=== PATIENT | female | born 1960 | race Caucasian/White ===

== ENCOUNTER → 2019-01-17 | Outpatient (CLI) | payer BC ==
--- NOTE | 2019-01-17 11:19 | RAD ---
DEXA scan 01/17/2019 Clinical History: Postmenopausal female. Risk factors for osteoporosis. Technique: DEXA of the lumbar spine and the right hip was performed. FINDINGS: No previous studies are available for comparison. The bone mineral density of the lumbar spine is 1.142 g/cm2 which corresponds with a T-score of -0.3 . This is within normal limits. The mean bone mineral density of the right hip is 853 g/sq cm. This corresponds to a T score of -0.8. This is within the lower limits of normal. By World [employer] on Osteoporosis criteria, a T score of 0 to-1 SD is considered to be within normal limits. A T score of -1 to -2.5 SD is considered osteopenia. A T score less than -2.5 SD is considered osteoporosis Impression: The patient's mean bone mineral densities are within normal limits. Electronically signed by: Luis Sinclair MD (01/17/2019 11:17 AM) [id number]
--- NOTE | 2019-01-17 14:55 | RAD ---
DATE: 01/17/2019 EXAM: MAMMO BAR SCREENING BILATERAL HISTORY: Routine screening COMPARISON: 08/17/2015 This study was interpreted with the benefit of Computerized Aided Detection (CAD). Breast Density: HETERO The breast parenchyma is heterogenously dense, which could reduce sensitivity of mammography. Breast parenchyma level C. FINDINGS: 2-D and 3-D tomosynthesis imaging was performed in CC and MLO projections. Surgical clips are now evident in the right breast at the 6:00 location. Additionally, a breast biopsy marker has been placed near the 12:00 location in the right breast. No new or enlarging breast densities are seen. Minimal benign type calcification is present. No suspicious microcalcifications have developed. IMPRESSION: There is no mammographic evidence of malignancy either breast. BI-RADS CATEGORY: 2 BENIGN FINDING(S) RECOMMENDED FOLLOW-UP: 12M 12 MONTH FOLLOW-UP PQRS compliance statement: Patient information was entered into a reminder system with a target due date for the next mammogram. Mammography is a sensitive method for finding small breast cancers, but it does not detect them all and is not a substitute for careful clinical examination. A negative mammogram does not negate a clinically suspicious finding and should not result in delay in biopsying a clinically suspicious abnormality. "Our facility is accredited by the [employer] Mammography Program."
== END | disposition home or self-care (01) ==
LOC: DXRAD 10:06
PROVIDERS: ATTEND Physician Assistant Medical
DX: Z12.31 Encounter for screening mammogram for malignant neoplasm of breast (principal); Z13.820 Encounter for screening for osteoporosis; Z78.0 Asymptomatic menopausal state
CPT/HCPCS: 77063; 77067; 77080

== ENCOUNTER → 2019-01-25 | Outpatient (CLI) | payer BC ==
--- NOTE | 2019-01-25 12:34 | RAD ---
Thyroid sonography Clinical indications: Low thyroid levels. FINDINGS: The longitudinal AP and transverse dimensions of the left lobe are 6.0 cm and and 1.6 cm and 1.5 cm respectively. There are multiple small hypoechoic nodules present. There is a small hypoechoic nodule within the mid aspect measuring 7 mm. There is a small mainly isoechoic solid nodule within the mid aspect measuring 12 mm in size. The longitudinal and AP and transverse dimensions of the right lobe are 5.9 cm and 1.5 centers and 1.9 cm respectively. Small hypoechoic nodules are seen throughout the right lobe. There is a complex cystic and solid nodule within the mid aspect measuring 5 mm in size. The isthmus measures 2.5 mm in thickness and is homogeneous. IMPRESSION: Multiple small hypoechoic nodules are seen bilaterally which may be seen with subacute Darrin's thyroiditis. There is a 12 mm nodule mid aspect left lobe which is ACR-TI category lesion 3. Recommend continued sonographic follow-up in 6-12 months. Electronically signed by: Daren Lee MD (01/25/2019 12:31 PM) [facility]
== END | disposition home or self-care (01) ==
LOC: US 08:52
PROVIDERS: ATTEND Physician Assistant Medical
DX: E04.1 Nontoxic single thyroid nodule (principal)
CPT/HCPCS: 76536